=== PATIENT | female | born 1950 ===

== ENCOUNTER 2019-03-02 11:28 | Emergency (ER) | payer OTHER ==
[~2019-03-02] VITALS: Ht 157.5 cm; Wt 63.0 kg
[2019-03-02] MEDS ORDERED: ATENOLOL25 MG (11:39)
[2019-03-02] MEDS ORDERED: LISINOPRIL10 MG (11:39)
== END 2019-03-02 15:10 | disposition home or self-care (01) ==
LOC: ER 11:28
DX: K58.8 Other irritable bowel syndrome (principal)